=== PATIENT | male | born 1945 | race Two or more races ===

== ENCOUNTER 2017-01-07 09:48 | Inpatient (IN) | END 2017-01-13 18:40 | disposition home or self-care (01) | DRG 871 | DX: A41.9 Sepsis, unspecified organism (principal); J18.0 Bronchopneumonia, unspecified organism; N17.9 Acute kidney failure, unspecified; N39.0 Urinary tract infection, site not specified; E87.1 Hypo-osmolality and hyponatremia; I48.91 Unspecified atrial fibrillation; E86.1 Hypovolemia; N40.0 Benign prostatic hyperplasia without lower urinary tract symptoms; E78.5 Hyperlipidemia, unspecified; Y95 Nosocomial condition; I12.9 Hypertensive chronic kidney disease with stage 1 through stage 4 chronic kidney disease, or unspecified chronic kidney disease; N18.9 Chronic kidney disease, unspecified; E87.6 Hypokalemia ==

== ENCOUNTER 2017-02-03 10:28 | Emergency (ER) | payer OTHER ==
[~2017-02-03] VITALS: Ht 160 cm; Wt 61.0 kg
[~2017-02-03 10:28] MED LIST: APIX5TAB PO; ATOR10TA65 PO; CEFT2PIG2 IVPB; DIPH25CA6 PO; ESOM40CA PO; FER325 PO; METO-429 PO; TAMS-14 PO
[2017-02-03 10:34] VITALS: Ht 160 cm; Wt 61.0 kg
[2017-02-03 12:10] VITALS: BP 140/71; PULSE 81; RESP 20; TEMP 98
--- NOTE | 2017-02-03 13:00 | ERD ---
ER Documentation Chief Complaint Chief Complaint PICC LINE REMOVAL HPI This is a 71-year-old male who presents for left upper extremity PICC line removal. The patient is a very poor historian as well as his family member. They are not sure why he was getting the PICC line or antibiotics. Reviewing the patient's electronic medical record he has completed antibiotics for pneumonia. The patient is asking for PICC line removal. I spoke to Dr. Rita AWAN who confirms that the line can be discontinued. ROS All systems reviewed and are negative except as per history of present illness. Medications Home Meds Active Scripts Ceftriaxone Sod* (Rocephin* 2GM/D5W (PMX)) 2 Gm/50 Ml Iv.soln., 2 GM IVPB Q24H for 7 Days, EA Prov:SULYFosterSANJUANAANTONIETTA Neelima 01/13/17 Apixaban* (Eliquis*) 5 Mg Tablet, 5 MG PO BID for 30 Days, TAB 3 Refills Prov:SULYASHOK Ortez 01/13/17 Ferrous Sulfate* (Ferrous Sulfate*) 325 Mg Tabec, 325 MG PO DAILY for 30 Days, TAB 3 Refills Prov:ASHOK TUBBS 01/13/17 Metoprolol Tartrate* (Lopressor*) 50 Mg Tab, 50 MG PO BID for 30 Days, TAB 3 Refills Prov:ASHOK TUBBS 01/13/17 Reported Medications Atorvastatin Calcium (Atorvastatin Calcium) 10 Mg Tablet, 10 MG PO QHS, #30 TAB 01/08/17 Diphenhydramine Hcl* (Diphenhydramine Hcl*) 25 Mg Capsule, 25 MG PO QHS Y for SLEEP, CAP 01/08/17 Tamsulosin Hcl* (Flomax*) 0.4 Mg Cap.er.24h, 0.4 MG PO DAILY, CAP 01/08/17 Esomeprazole Mag Trihydrate (Nexium) 40 Mg Capsule.dr, 40 MG PO DAILY 11/11/11 Allergies Allergies: Coded Allergies: No Known Drug Allergies (Verified Allergy, Unknown, 01/07/17) PMhx/Soc History of Surgery: Yes (catract sx) Anesthesia Reaction: No Hx Neurological Disorder: No Hx Respiratory Disorders: No Hx Cardiac Disorders: Yes (htn) Hx Psychiatric Problems: No Hx Miscellaneous Medical Probl: No Hx Alcohol Use: No Hx Substance Use: No Hx Tobacco Use: No Smoking Status: Never smoker FmHx Family History: No diabetes Physical Exam Vitals Vital Signs Date Time Temp Pulse Resp B/P Pulse Ox O2 Delivery O2 Flow Rate FiO2 02/03/17 12:10 98.0 81 20 140/71 98 Room Air 02/03/17 10:34 99.2 66 19 136/78 98 Physical Exam General: Well developed, well nourished, no acute distress Head: Normocephalic, atraumatic. Eyes: EOM intact ENT: Moist mucous membranes Neck: Full ROM Respiratory: No respiratory distress Cardiovascular: Good capillary refil Abdominal: Nondistended : Deferred MSK: No edema, no unilateral swelling, 5/5 strength Neurologic: Alert and oriented, moving all extremities, normal speech, steady gait Skin: No rash, left upper extremity PICC line is clean dry and intact without evidence of infection Psych: Normal mood Procedures/MDM PICC line removal: The patient provided verbal consent. I confirmed removal with the patient's managing provider, Dr. Rita AWAN. Using a sterile procedure I was able to remove the PICC line intact without complications. A clean dressing was applied with direct pressure to the site. The patient had no bleeding, no complications. The patient tolerated the procedure well. The PICC line was removed. A dressing was applied. The patient can follow-up with primary care physician. Departure Diagnosis: Primary Impression: Encounter for removal of peripherally inserted central catheter Condition: Good Patient Instructions: Picc Line Care Additional Instructions: Your PICC line was removed. Follow with PMD. NOBLE FREITAS MD Feb 03, 2017 13:00
== END 2017-02-03 12:10 | disposition home or self-care (01) ==
LOC: E/R 10:28
DX: Z45.2 Encounter for adjustment and management of vascular access device (principal); I10 Essential (primary) hypertension; Z79.01 Long term (current) use of anticoagulants
CPT/HCPCS: 99282